=== PATIENT | male | born 1935 | race Caucasian/White ===

== ENCOUNTER 2021-10-30 06:34 | Day surgery (SDC) | payer MEDICARE, SELFPAY ==
[2021-10-30] VITALS (7 sets, daily range): BP systolic 133–172; BP diastolic 63–79; PULSE 55–64; RESP 12–18; TEMP 35.8–36.2; O2SAT 92–98; BMI 28.3
[2021-10-30] MEDS: Lactated Ringers 1,000 ML 15 ML IV (06:50)
[2021-10-30] MEDS: Hydrocortisone Sod Succinate 100 MG/2 ML Vial IV (07:19)
[2021-10-30] MEDS: Cefazolin 2 GM in 0.9% Normal Saline 100 ML IV (09:33)
--- NOTE | 2021-10-30 09:41 | DCINST_ITS ---
Discharge Instructions Diet Discharge Diet: No restrictions Follow Up Care Please Follow Up With: Enrrique Dean MD Test Results: Test results from this visit will be discussed in further detail at your follow- up appointment, if applicable. Discharge Plan Admission Primary Reason for Your Visit: kidney stones Attending Provider: Enrirque Dean Primary Care Provider: Evan Camacho Discharge Orders/Prescriptions Prescriptions: New tramadol 50 mg tablet 50 mg PO Q6H PRN (Reason: pain) Qty: 14 0RF ciprofloxacin HCl 500 mg tablet 500 mg PO BID Qty: 10 0RF tramadol 50 mg tablet 50 mg PO Q6H PRN (Reason: pain) Qty: 14 0RF Continued hydrocortisone 5 mg Tablet 5 mg PO QHS atorvastatin 10 mg Tablet 10 mg PO QHS amlodipine [Norvasc] 5 mg Tablet 5 mg PO QHS aspirin 81 mg Tablet,Delayed Release (Dr/Ec) 81 mg PO QHS tamsulosin [Flomax] 0.4 mg Capsule 0.4 mg PO QHS sodium bicarbonate 650 mg Tablet 650 mg PO DAILY hydrocortisone 10 mg Tablet 10 mg PO DAILY finasteride 5 mg Tablet 5 mg PO QHS ascorbic acid (vitamin C) [Vitamin C] 500 mg Tablet Extended Release 500 mg PO QHS doxazosin 2 mg Tablet 2 mg PO DAILY cholecalciferol (vitamin D3) [Vitamin D3] 25 mcg (1,000 unit) Tablet 25 mcg PO DAILY levothyroxine 75 mcg Capsule 75 mcg PO DAILY PreserVision AREDS-2 250-90-40-1 mg Capsule 1 tab PO BID Referrals / Follow Up: Evan Camacho MD [Primary Care Provider] - Disposition Disposition (needs filled in before D/C Order can be placed): Home, Self Care
--- NOTE | 2021-10-30 09:41 | PCM.HP.STD ---
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 [facility] Medical History Anemia Cardiology follow-up encounter CPAP (continuous positive airway pressure) dependence Depression Diabetes Easy bruising Excessive bleeding Former smoker High cholesterol History of atrial fibrillation History of diverticulitis History of edema History of histoplasmosis History of renal disease History of rheumatic fever History of steroid therapy History of stress test Hx of bladder problems Hx of pituitary neoplasm Hypertension Leg cramps Low iron Prostate disease Restless legs Shortness of breath on exertion Stroke/cerebrovascular accident Syncope Thyroid disease Walker as ambulation aid Wears glasses Wears hearing aid Home Medications amlodipine 5 mg tablet (Norvasc) 5 mg PO QHS 10/28/21 [History Last Taken Unknown] ascorbic acid (vitamin C) 500 mg tablet,extended release (Vitamin C ER) 500 mg PO QHS 10/28/21 [History Last Taken Unknown] aspirin 81 mg tablet,delayed release 81 mg PO QHS 10/28/21 [History Last Taken Unknown] atorvastatin 10 mg tablet 10 mg PO QHS 10/28/21 [History Last Taken Unknown] cholecalciferol (vitamin D3) 25 mcg (1,000 unit) tablet (Vitamin D3) 25 mcg PO DAILY 10/28/21 [History Last Taken Unknown] doxazosin 2 mg tablet 2 mg PO DAILY 10/28/21 [History Last Taken Unknown] finasteride 5 mg tablet 5 mg PO QHS 10/28/21 [History Last Taken Unknown] hydrocortisone 10 mg tablet 10 mg PO DAILY 10/28/21 [History Last Taken Unknown] hydrocortisone 5 mg tablet 5 mg PO QHS ADRENAL INSUFFICIENCY 10/28/21 [History Last Taken Unknown] levothyroxine 75 mcg capsule 75 mcg PO DAILY 10/28/21 [History Last Taken Unknown] sodium bicarbonate 650 mg tablet 650 mg PO DAILY 10/28/21 [History Last Taken Unknown] tamsulosin 0.4 mg capsule (Flomax) 0.4 mg PO QHS 10/28/21 [History Last Taken Unknown] vit C 250 mg-vit E 90 mg-zinc 40 mg-copper 1 [id number] capsule (PreserVision AREDS-2) 1 tab PO BID 10/28/21 [History Last Taken Unknown] ciprofloxacin HCl 500 mg tablet 500 mg PO BID #10 tabs 10/30/21 [Rx Last Taken Unknown] tramadol 50 mg tablet 50 mg PO Q6H PRN pain #14 tabs 10/30/21 [Rx Last Taken Unknown] tramadol 50 mg tablet 50 mg PO Q6H PRN pain #14 tabs 10/30/21 [Rx Last Taken Unknown] Allergy/AdvReac Type Severity Reaction Status Date / Time Penicillins Allergy Rash Verified 10/30/21 07:22 Surgical History History of hand surgery Hx laparoscopic cholecystectomy Hx of cervical spine surgery Hx of colonoscopy Hx of left cataract extraction Social History Smoking Status: Former smoker Vital Signs Vital Signs Vital Signs: 10/30/21 07:23 10/30/21 07:23 Temperature 97.1 F L Temperature Source Temporal Pulse Rate 55 L Respiratory Rate 17 Respiratory Pattern Normal Blood Pressure 133/63 H Blood Pressure Mean 86 Blood Pressure Source Monitor Blood Pressure Position Semi-Fowlers Blood Pressure Location Left Arm Pulse Ox 98 Oxygen Delivery Method Room Air Weight Weight: 82 kg Body Mass Index (BMI) 28.3
--- NOTE | 2021-10-30 10:51 | OP.PCM_ITS ---
Report of Operation Date of Procedure: 10/30/21 Pre-Operative Diagnosis: Impacted right ureteral calculi severe hydronephrosis on the right side atrophic kidney, left UPJ stone with hydronephrosis Post-Operative Diagnosis: The same Surgery/Procedure Performed:: Cystoscopy left retrograde pyelogram balloon dilation of the left ureter left ureteroscopy laser lithotripsy of stone and left stent placement, right ureteroscopy right retrograde pyelogram attempted stent placement unable to get past impacted stone. Description of Surgical Findings:: Indication is an 86-year-old male who has an impacted stone in the distal right ureter he and the family state that a prior urologist try to get past the stone was not able to this was in the past. On recent CAT scan he has a severely hydronephrotic right kidney atrophic right kidney poorly functioning right kidney obstructed stone to be nice to get that stone out of possible so over today organ attempt right ureteroscopy and removal of the right ureteral calculi it may not be possible since is already been attempted before. He also has a large stone in the left kidney Patient was taken back to the operating room after smooth induction of anesthesia he was placed in dorsolithotomy position. The penis testicles were prepped and draped in usual sterile fashion. I balloon dilated the distal left ureter and I went up to the left side with a ureteroscope was able to get up the left kidney and then found the large left renal pelvic stone using a 270 ?m laser fiber the stone was laser little tiny pieces and successfully treated the stone completely. Retrograde pyelogram was performed demonstrated the anatomy and then I placed a wire up in the left side and then over the wire place a stent of note he had a very large obstructive prostate very large median lobe very large bilateral hypertrophy. Then I went to the right side was able to find the right ureteral orifice very difficult to find with a very large median lobe and then on the right side I attempted a wire to go past the wire go up to the stone the stone was only a few centimeters up but the wire would coil there is no way to pass it and I put a Pollick catheter up to perform a retrograde pyelogram no contrast got past the stone and contrast went up the ureter and then back down into the bladder and then I went over the wire with the ureteroscope and again tried to directly visualize a pathway past the area but really did not even see the stone just could see mucosa it looks like the stone is impacted and the mucosa had completely gone over the stone and completely sealed off there was no way through to the stone just mucosa Block a blind end pouch on the right side. So at this point I decided to abandon any chances to try to get the stone in distal ureter he had an impacted stone in the right di stal ureter for a long time he is got a poorly functioning atrial trophic hydronephrotic right kidney as long as he does not become infected or any problems we will leave this alone looks like the ureter is completely collapsed with grown in mucosa all the way around the stone and there is no way past the stone. He is 86 so I do not think any heroic other measures will be attempted on the right side the left side today was to successfully lasered completely hopefully he will be able to urinate okay after the procedure he does have a very large prostate he may need to go home with a catheter.. Type of Anesthesia: General Drains: stent Admit VTE Documentation VTE Present on Admission: No VTE Mechan Device Prophylaxis: SCD's VTE Pharm Prophylaxis ordered?: No
== END 2021-10-30 14:00 | disposition home or self-care (01) ==
LOC: SDC 06:36 → AC 06:38
PROVIDERS: PCP Family Medicine; Referring Provider Urology; Visit Provider Urology
PROC: 0TJ98ZZ Inspection of Ureter, Via Natural or Artificial Opening Endoscopic (ICD-10-PCS; CPT 52352; principal; 2021-10-30 08:20)
DX: N13.2 Hydronephrosis with renal and ureteral calculous obstruction (principal); I69.354 Hemiplegia and hemiparesis following cerebral infarction affecting left non-dominant side; N18.4 Chronic kidney disease, stage 4 (severe); R73.03 Prediabetes; D63.1 Anemia in chronic kidney disease; I12.9 Hypertensive chronic kidney disease with stage 1 through stage 4 chronic kidney disease, or unspecified chronic kidney disease; N40.1 Benign prostatic hyperplasia with lower urinary tract symptoms; R35.0 Frequency of micturition; R35.1 Nocturia; E78.00 Pure hypercholesterolemia, unspecified; E03.9 Hypothyroidism, unspecified; G47.30 Sleep apnea, unspecified; Z79.82 Long term (current) use of aspirin; Z79.899 Other long term (current) drug therapy; Z87.442 Personal history of urinary calculi; Z86.16 Personal history of COVID-19; Z87.891 Personal history of nicotine dependence
CPT/HCPCS: 52356; 76000; J7120; C1769; C2617; J2405